=== PATIENT | female | born 1955 | race Caucasian/White ===

== ENCOUNTER 2019-01-19 16:54 | Emergency (ER) | payer MEDICARE ==
[2019-01-19] MEDS ORDERED: DIPHENHYDRAMINE HCL 50 MG/ML VIAL IV ONE (17:20)
[2019-01-19] MEDS ORDERED: KETOROLAC TROMETHAMINE INJ/PF 30 MG/1 ML SDV IV ONE (17:20)
[2019-01-19] MEDS ORDERED: ONDANSETRON HCL INJ/PF 4 MG/2 ML SDV IV ONE (17:20)
[2019-01-19 17:21] VITALS: BP 138/73
--- NOTE | 2019-01-19 17:25 | ER Document Report ---
ED Medical Screen (RME) - General Chief Complaint: Headache Stated Complaint: NAUSEA/HEADACHE Time Seen by Provider: 01/19/19 17:17 Mode of Arrival: Wheelchair Information source: Patient, Relative Notes: This 63-year-old female presents emergency department with complaints of migraines and nausea. Reports symptoms started this morning. Reports history of migraines , diabetes cardiac disease COPD. Patient recently relocated to the [facility] from [place]. Patient does see pain management for her neck pain. Patient reports she usually goes to [facility] for her migraines and they give her Phenergan and Demerol. Patient speaking in a clear voice. Reports this is typical of her migraines. She reports that she usually has pain in the front of her head but today is more pain in the back. She took Goody michaels and Phenergan without relief of symptoms. She denies falling. She reports this is typical of her usual migraines. Her daughter is with her and reports this is typical for patient. I have greeted and performed a rapid initial assessment of this patient. A comprehensive ED assessment and evaluation of the patient, analysis of test results and completion of the medical decision making process will be conducted by additional ED providers. Dictation of this chart was performed using voice recognition software; therefore, there may be some unintended grammatical errors. Physical Exam - Vital signs Vitals: Temp Pulse Resp BP Pulse Ox 99 F 90 16 138/73 H 92 01/19/19 17:18 01/19/19 17:18 01/19/19 17:18 01/19/19 17:18 01/19/19 17:18 Course - Vital Signs Vital signs: Temp Pulse Resp BP Pulse Ox 99 F 90 16 138/73 H 92 01/19/19 17:18 01/19/19 17:18 01/19/19 17:18 01/19/19 17:18 01/19/19 17:18
[2019-01-19] MEDS ORDERED: KETOROLAC TROMETHAMINE 60 MG/2 ML SDV IM ONE (18:49)
[2019-01-19] MEDS ORDERED: PROMETHAZINE HCL INJ 50 MG/1 ML VIAL IM PRN (18:49)
[2019-01-19] MEDS ORDERED: PROMETHAZINE HCL INJ 50 MG/1 ML VIAL ONE (19:21)
== END 2019-01-19 20:17 | disposition home or self-care (01) ==
LOC: ER 16:54
DX: G43.909 Migraine, unspecified, not intractable, without status migrainosus (principal); R11.0 Nausea; Z53.20 Procedure and treatment not carried out because of patient's decision for unspecified reasons
CPT/HCPCS: J1885; J2550